=== PATIENT | male | born 1975 | race Two or more races ===

== ENCOUNTER 2017-06-12 23:40 | Outpatient (CLI) | payer OTHER | END 2017-06-12 23:41 | disposition critical access hospital (66) | LOC: EMS 23:40 | PROVIDERS: ATTEND Surgery | DX: M54.9 Dorsalgia, unspecified (principal) | CPT/HCPCS: A0425; A0427 ==

== ENCOUNTER 2017-06-13 00:05 | Emergency (ER) | payer OTHER ==
[2017-06-13] MEDS ORDERED: HYDROmorphone 1 MG/ML SYRINGE IVP STA ×2 (00:56→05:44)
[2017-06-13] MEDS ORDERED: ACETAMINOPHEN 1,000 MG/100 ML 100 ML IV STA (00:56)
[2017-06-13] MEDS ORDERED: methylPREDNISolone SUCCINATE 125 MG/2 ML VIAL IVP STA (00:56)
[2017-06-13] MEDS ORDERED: KETOROLAC 30 MG/ML VIAL IVP STA (00:57)
[2017-06-13] MEDS ORDERED: HYDROmorphone 1 MG/ML SYRINGE ONE ×2 (01:04→05:50)
[2017-06-13] MEDS ORDERED: methylPREDNISolone SUCCINATE 125 MG/2 ML VIAL IVP ONE (01:05)
[2017-06-13] MEDS ORDERED: SODIUM CHLORIDE FLUSH 0.9% 10 ML SYRINGE IVP ONE (01:05)
[2017-06-13] MEDS ORDERED: KETOROLAC 30 MG/ML VIAL ONE (01:05)
[2017-06-13] MEDS ORDERED: ACETAMINOPHEN 1,000 MG/100 ML 100 ML IV ONE (01:05)
--- NOTE | 2017-06-13 06:23 | ED Physician Documentation ---
History of Present Illness - Stated complaint Stated Complaint: BACK PAIN - Chief complaint Chief Complaint: Ext Problem - Additonal information Additional information: Patient is a 41-year-old male without any past medical history who [place] in [place]. He is going back on . He is otherwise healthy and has no past medical or past surgical history. He had been moving some boxes and reached down and felt immediate sharp twinge in his lower back. From that time the present he has been unable to move much has been going on the floor of his house. He tried taking Tylenol and ibuprofen without any significant improvement and called the ambulance because he is unable to get up off the floor. He denies any numbness or tingling in her extremities and is no complaints of weakness bowel or bladder complaints or perineal anesthesia. Review of systems: For pertinent positive and negatives in the review of systems please see the history of present illness, otherwise all other systems have been reviewed and are negative. Dragon disclaimer: Parts of this medical record were created using voice recognition technology. Because of the inherent limitations of this system, occasional same sounding word substitutions do occur and persist despite proofreading. Please read the document for context. Review of Systems Constitutional: denies: Fever, Chills Musculoskeletal: reports: Back pain Neurologic: denies: Focal weakness, Numbness, Difficulty speaking, Syncope, Seizure, Confused, Altered mental status PD PAST MEDICAL HISTORY - Past Medical History Past Medical History: No Cardiovascular: None Respiratory: None Neuro: None Endocrine/Autoimmune: None GI: None : None HEENT: None Psych: None Musculoskeletal: None Derm: None - Past Surgical History Past Surgical History: Yes General: Other HEENT: Tonsil/Adenoidectomy - Present Medications Home Medications: Ambulatory Orders Medication Instructions Recorded Confirmed LORazepam [Ativan] 1 mg PO Q6HR PRN #14 tablet 06/13/17 Prednisone 40 mg PO DAILY #8 tablet 06/13/17 oxyCODONE/ACET 5/325 [Percocet 5 1 each PO Q4-6H PRN #16 tablet 06/13/17 mg/325 mg] - Allergies Allergies/Adverse Reactions: Allergies Allergy/AdvReac Type Severity Reaction Status Date / Time Sulfa (Sulfonamide AdvReac Hives Verified 06/13/17 00:13 Antibiotics) - Social History Does the pt smoke?: No Smoking Status: Never smoker Does the pt drink ETOH?: Yes Does the pt have substance abuse?: No - Immunizations Immunizations are current?: Yes - POLST Patient has POLST: No PD ED PE NORMAL - General General: Alert and oriented X 3, Well developed/nourished - HEENT HEENT: Atraumatic, PERRL - Neck Neck: Supple, no meningeal sign - Cardiac Cardiac: RRR - Respiratory Respiratory: No respiratory distress, Clear bilaterally - Abdomen Abdomen: Normal bowel sounds - Derm Derm: Normal color, Warm and dry, No rash - Extremities Extremities: No deformity, No tenderness to palpate, Normal ROM s pain, No edema , No calf tenderness / cord - Neuro Neuro: Alert and oriented X 3, No motor deficit, No sensory deficit - Psych Psych: Normal mood, Normal affect Results - Vitals Vitals: Vital Signs - 24 hr 06/13/17 06/13/17 06/13/17 00:10 00:20 01:21 Temperature 36.9 C 36.9 C Heart Rate 69 72 64 Respiratory 17 12 17 Rate Blood Pressure 126/76 126/76 O2 Saturation 100 99 95 06/13/17 06/13/17 06/13/17 02:44 04:11 05:00 Temperature Heart Rate 64 Respiratory 14 14 14 Rate Blood Pressure 107/58 L O2 Saturation 98 Oxygen O2 Source Room air PD MEDICAL DECISION MAKING - ED course ED course: Healthy young male with nontraumatic low back pain without sciatica. He appears uncomfortable here on initial presentation but has a completely normal neurologic examination of the lower extremities. We attempt did to get him feeling better with Toradol, IV Tylenol, Dilaudid, and Solu-Medrol. Additional dose of Toradol and Dilaudid was given this morning. I see no high risk findings. Imaging was considered however the patient wanted to try a conservative approach to his medications. He is allowed to sleep here overnight and looks better. This morning he is given additional dose of Dilaudid and Toradol and we hope to get the patient up and out of here Disposition: To home Clinical impression: 1. Acute lumbar pain and strain Departure - Departure Disposition: 01 Home, Self Care Clinical Impression: Lumbar back pain Qualifiers: Chronicity: acute Back pain laterality: bilateral Sciatica presence: without sciatica Qualified Code(s): M54.5 - Low back pain Condition: Good Instructions: ED Spasm Back No Trauma, ED Sprain Strain Lumbar Prescriptions: LORazepam [Ativan] 1 mg PO Q6HR PRN #14 tablet PRN Reason: Spasms oxyCODONE/ACET 5/325 [Percocet 5 mg/325 mg] 1 each PO Q4-6H PRN #16 tablet PRN Reason: Pain Prednisone 40 mg PO DAILY #8 tablet
[2017-06-13] MEDS ORDERED: oxyCOD/ACETAMIN 5 MG/325 MG TABLET PO STA (10:24)
[2017-06-13] MEDS ORDERED: oxyCOD/ACETAMIN 5 MG/325 MG TABLET PO ONE (10:30)
[2017-06-13 10:32] VITALS: BP 110/68
== END 2017-06-13 10:38 | disposition home or self-care (01) ==
LOC: ED 00:05
DX: S39.012A Strain of muscle, fascia and tendon of lower back, initial encounter (principal); X58.XXXA Exposure to other specified factors, initial encounter; Y93.89 Activity, other specified
CPT/HCPCS: 96374; 96375; 96376; 99284; A9270; J0131; J1170